=== PATIENT | female | born 1970 | race Caucasian/White ===

== ENCOUNTER → 2019-05-19 | Outpatient (CLI) | payer OTHER | LOC: RAD 07:54 | DX: N63.11 Unspecified lump in the right breast, upper outer quadrant (principal); R59.0 Localized enlarged lymph nodes; Z85.72 Personal history of non-Hodgkin lymphomas | CPT/HCPCS: Q9967 ==

== ENCOUNTER → 2020-01-20 | Outpatient (CLI) | payer OTHER | LOC: RAD 08:43 | DX: K76.89 Other specified diseases of liver (principal); Z85.3 Personal history of malignant neoplasm of breast; Z90.13 Acquired absence of bilateral breasts and nipples | CPT/HCPCS: Q9967 ==

== ENCOUNTER 2020-12-01 13:04 | Outpatient (RCR) | payer OTHER ==
[2020-11-26 13:55] VITALS: BP 131/81
[~2020-12-01] VITALS: Ht 175.3 cm; Wt 68.2 kg
[~2020-12-01 13:04] MED LIST: CALCIUM CITRAT250 M1 PO; LEVOTHYROXINE13 MCG PO; ROCALTROL0.5 MC1 PO
[2020-12-01 13:15] VITALS: BP 118/74
== END 2020-12-01 16:00 | disposition home or self-care (01) ==
LOC: AMSURD 13:04
DX: Z01.818 Encounter for other preprocedural examination (principal); Z85.3 Personal history of malignant neoplasm of breast